=== PATIENT | female | born 1945 | race Caucasian/White ===

== ENCOUNTER → 2016-08-24 | Day surgery (SDC) | payer OTHER, BC ==
[2016-08-24 10:14] LABS: INR 1.03 (0.82-1.09); PROTHROMBIN TIME (PATIENT) 11.3 SEC (9.98-11.88)
== END | disposition home or self-care (01) ==
LOC: JRADIR 09:32
PROVIDERS: ATTEND Internal Medicine Hematology & Oncology
PROC: 02PY03Z Removal of Infusion Device from Great Vessel, Open Approach (ICD-10-PCS; principal; 2016-08-24)
DX: Z45.2 Encounter for adjustment and management of vascular access device (principal)
CPT/HCPCS: 36415; 36589; 36590; 77001-TC; 85610

== ENCOUNTER 2020-07-10 09:27 | Emergency (ER) | payer OTHER, BC | END 2020-07-10 09:43 | disposition home or self-care (01) | LOC: JVIRT 09:27 | DX: Z11.52 Encounter for screening for COVID-19 (principal) | CPT/HCPCS: C9803; G2251-GT; U0003 ==